=== PATIENT | female | born 1935 | race Caucasian/White ===

== ENCOUNTER → 2018-01-17 13:33 | Outpatient (CLI) | payer MEDICARE, SELFPAY ==
--- NOTE | 2018-01-17 | DI.NM.S_ITS ---
PROCEDURE: NM MANNY PERF SPECT R&S PHARM Rest and pharmacological stress myocardial perfusion SPECT with gated imaging and ejection fraction RADIOPHARMACEUTICAL: 24.9 mCi Tc-99m tetrafosmin IV at rest and 24.8 mCi Tc-99m tetrafosmin IV at peak effect of pharmacological stress. Ljv-gcr-lolyaopu was performed. INDICATIONS: AFIB TECHNIQUE: Radiopharmaceutical was injected at peak stress test, and also at rest. SPECT images were obtained. SPECT myocardial perfusion images were displayed in short axis, horizontal long axis, and vertical long axis views. Gated images were reviewed using Flurry software. COMPARISON: None. CARDIAC STRESS: A pharmacologic stress test was performed under the supervision of an attending staff, using an infusion of lexiscan 0.4mg IV X1. Hemodynamic data: There is normal blood pressure and heart rate response to pharmacologic stress. Symptoms: The patient denied anginal chest pain. Dyspnea occurred with lexiscan injection. Aminophylline: none EKG: Atrial fibrillation with RBBB present throughout the study. No diagnostic changes of ischemia; no ectopy. FINDINGS: Raw data: There is good myocardial uptake of radiotracer. No significant motion artifacts. Ewrf-nj-vifje ratio is 0.29 (normal is less than 0.38 for tetrafosmin tracer). Left ventricle function: Gated images demonstrate normal left ventricular wall thickening. No segmental wall motion abnormalities. No transient ischemic dilation; TID is 0.93 (normal less than 1.3). Left ventricle resting end diastolic volume is 132 mL. Left ventricle stress ejection fraction is 78%; normal range is above 45%. Myocardial perfusion: There is a mildly intense small fixed defect at the apex that appears to be attenuation artifact but small non-transmural apical infarction can not be excluded. Prone images not obtained due to the patient's physical disability. IMPRESSION: Probably normal pharmaceutical nuclear stress test 1) Probably normal perfusion images. There is a mildly intense small fixed defect at the apex that appears to be attenuation artifact but small non-transmural apical infarction can not be excluded. Prone images not obtained due to the patient's physical disability. 2) Normal left ventricular size, wall motion, and systolic function (post stress EF 78%). 3) No ECG evidence of ischemia. 4) Atrial fibrillation with RBBB present throughout the study. 5) No chest pain during the study. Patient had dyspnea due to the lexiscan injection. 6) No prior nuclear stress test available for comparison. Dictated by: Mehrdad Li MD on 01/18/2018 at 13:22 Approved by: Mehrdad Li MD on 01/18/2018 at 13:29
--- NOTE | 2018-01-17 14:59 | PM.TREADMILL ---
Cardiac Stress Test Report Referral & Results Date Patient Seen: 01/17/18 Requesting provider: Kristian Dai Rest ECG: Atrial fibrillation Procedure Note: After both written and verbal informed consent the patient had an IV started by the diagnostic imaging RN and then was hooked up to the treadmill monitoring system. The patient was then injected with the Al[place]a scan material. The Cardiolite was then immediately administered. The patient became severely dyspneic with the administration of the Lexiscan. Her oxygen saturation dropped into the low 80s. However within 3-5 minutes she began to feel much improved and her oxygen saturation returned to normal. Patient does have known chronic lung disease. The patient otherwise had a normal response to all infused materials. Impression: Severe dyspnea and hypoxia produced by Lexiscan material although resolved prior to imaging Perfusion imaging to be reported separately Please note: Actual ECG tracings can be found in the PACS system.
== END ==
PROVIDERS: Family Provider Family Medicine; PCP Family Medicine; Visit Provider Internal Medicine
DX: I48.91 Unspecified atrial fibrillation (principal); I45.10 Unspecified right bundle-branch block
CPT/HCPCS: 78452; 93016; 93017; 93018; A9502; J2785

== ENCOUNTER 2018-02-06 15:00 | Oncology outpatient (ONC) | payer MEDICARE, SELFPAY ==
[2018-01-26] MEDS: IRON SUCROSE 100 MG in SODIUM CHLORIDE 0.9% 100 ML 420 ML IV (15:46)
[2018-01-26 16:36] VITALS: BP 164/65; PULSE 65; RESP 18; TEMP 36.8; O2SAT 98
[2018-01-30] MEDS: IRON SUCROSE 100 MG in SODIUM CHLORIDE 0.9% 100 ML 420 ML IV (15:31)
[2018-01-30 15:58] VITALS: BP 138/50; PULSE 60; RESP 20; TEMP 36.4; O2SAT 94
[2018-02-02] MEDS: IRON SUCROSE 100 MG in SODIUM CHLORIDE 0.9% 100 ML 420 ML IV (15:12)
[2018-02-06] MEDS: IRON SUCROSE 100 MG in SODIUM CHLORIDE 0.9% 100 ML 420 ML IV (15:39)
[2018-02-06 15:53] VITALS: BP 153/86; PULSE 60; RESP 14; TEMP 36.7
--- NOTE | 2018-02-06 16:15 | PC.NURSE ---
Ana comes shane w/c with son for Iron. She is on O2 @ 1L and has a fistula i her left arm in anticipation of future dialysis. she has 1-2 + edema in ankles. Tolerated infusion well. D/C with son.
== END 2018-02-23 13:35 ==
PROVIDERS: Family Provider Family Medicine; PCP Family Medicine; Visit Provider Internal Medicine Nephrology
DX: E11.22 Type 2 diabetes mellitus with diabetic chronic kidney disease (principal); I12.0 Hypertensive chronic kidney disease with stage 5 chronic kidney disease or end stage renal disease; N18.5 Chronic kidney disease, stage 5; D63.1 Anemia in chronic kidney disease
CPT/HCPCS: 96365; 96374; J1756

== ENCOUNTER 2018-02-09 11:37 | Emergency (ER) | payer MEDICARE, SELFPAY ==
[2018-02-09 11:45] VITALS: BP 118/67; PULSE 50; RESP 16; TEMP 36.6; O2SAT 96; BMI 26.9
--- NOTE | 2018-02-09 12:26 | ED.FALL ---
HPI - Fall <Vanesa Herndon [facility] JUSTICE-BC - Last Filed: 02/09/18 15:40> General Chief Complaint: Fall Stated Complaint: FELL AND HIT HEAD Time Seen by Provider: 02/09/18 12:03 Source: patient and family Mode of arrival: ambulatory Limitations: no limitations History of Present Illness HPI Narrative: Patient is an 82-year-old female with history of cardiac stents and renal disease who presents after a ground level fall approximately 10:00 a.m. this morning. She had a mechanical fall when trying to wear self and landed on the back of her head. She denies any loss of consciousness, but she is concerned she takes Plavix. She presents think she needs a head CT. She denies any dizziness, lightheadedness, nausea vomiting. She did complains of a headache and complains of a knot on her head. She denies any neck pain or back pain. She denies any other pain other than her headache. She has not taken anything for pain. She is adamant that she had a mechanical fall, no syncope. She presents with her grandson, who states she has ?acting completely normal? and that he thinks she is ?fine.? Related Data Home Medications Medication Instructions Recorded Confirmed clopidogrel [Plavix] 75 mg PO QDAY #0 08/29/11 02/09/18 CHOLECALCIFEROL (VITAMIN D3) 1,000 units PO QDAY #0 04/15/12 (VITAMIN D3) Vitamin B-12 100 mcg PO QDAY #0 04/15/12 [CENTRUM SILVER] 1 tab PO QAM #0 04/15/12 insulin glargine [Lantus U-100 10 unit SQ HS #10 ml 04/15/12 Insulin] atorvastatin 1 tab PO DAILY 02/09/18 02/09/18 carvedilol 02/09/18 02/09/18 citalopram 1 tab PO DAILY 02/09/18 02/09/18 fenofibrate 1 tab PO DAILY 02/09/18 02/09/18 hydralazine 1 tab PO TID 02/09/18 02/09/18 isosorbide mononitrate 90 mg PO DAILY 02/09/18 02/09/18 potassium chloride 02/09/18 02/09/18 ropinirole 02/09/18 02/09/18 spironolactone 12.5 mg PO DAILY 02/09/18 02/09/18 torsemide 02/09/18 02/09/18 tramadol 1 tab PO DAILY 02/09/18 02/09/18 trazodone 1 tab PO DAILY 02/09/18 02/09/18 umeclidinium-vilanterol [Anoro 02/09/18 02/09/18 Ellipta] Allergies Allergy/AdvReac Type Severity Reaction Status Date / Time No Known Drug Allergies Allergy Verified 02/09/18 11:45 Review of Systems <[facility] Last Filed: 02/09/18 15:40> Review of Systems GENERAL: Denies chills, fatigue, malaise, fever, sweats. HEENT: Denies sinus pain, ear pain, sore throat, difficulty swallowing, dizziness. RESPIRATORY: Denies dyspnea, cough, wheezing, hemoptysis, sputum. CARDIOVASCULAR: Denies chest pain, palpitations, orthopnea, edema, GASTROINTESTINAL: Denies nausea, vomiting, abdominal pain, diarrhea, constipation, melena. : Denies dysuria, frequency, incontinence, hematuria, urinary retention. MUSCULOSKELETAL: denies weakness, joint pain, or bony pain SKIN: See HPI NEUROLOGIC: See HPI PSYCHIATRIC: No concerning psychosocial issues. 12 point review of systems is negative except for those stated above Exam [facility] - Last Filed: 02/09/18 15:40> Narrative Exam Narrative: GENERAL: This is a well-nourished, well-developed patient, in no acute distress HEAD: Atraumatic. Normocephalic. No temporal or scalp tenderness. EYES: Pupils equal round and reactive. Extraocular motions intact. No scleral icterus. No injection or drainage. ENT: Nose without bleeding, purulent drainage or septal hematoma. Throat without erythema, tonsillar hypertrophy or exudate. Uvula midline. Airway patent. NECK: Trachea midline. No JVD or lymphadenopathy. Supple, nontender, no meningeal signs. CARDIOVASCULAR: Regular rate and rhythm without murmurs, gallops, or rubs. RESPIRATORY: Clear to auscultation. Breath sounds equal bilaterally. No wheezes, rales, or rhonchi. GASTROINTESTINAL: Abdomen soft, non-tender, nondistended. No hepato-splenomegaly, or palpable masses. No guarding. EXTREMITIES: No clubbing, cyanosis, or edema. No joint tenderness, effusion, or edema noted. BACK: Nontender without deformity or crepitance. No flank tenderness. No pain to C-spine and spinal palpation. NEURO: AOx3. Strength is equal upper and lower extremities bilaterally. No slurred speech. Cranial nerves grossly intact. SKIN: Palpable hematoma also put of the back of her head. No obvious bleeding. No laceration, no abrasion. Initial Vital Signs Initial Vital Signs: Vital Signs Temperature 97.8 F 02/09/18 11:45 Pulse Rate 50 L 02/09/18 11:45 Respiratory Rate 16 02/09/18 11:45 Blood Pressure 118/67 02/09/18 11:45 Pulse Oximetry 96 02/09/18 11:45 <Russel Colunga DO - Last Filed: 02/09/18 17:38> Initial Vital Signs Initial Vital Signs: Vital Signs Temperature 97.8 F 02/09/18 11:45 Pulse Rate 50 L 02/09/18 11:45 Respiratory Rate 16 02/09/18 11:45 Blood Pressure 118/67 02/09/18 11:45 Pulse Oximetry 96 02/09/18 11:45 Course <DOMENIC Wright-BC - Last Filed: 02/09/18 15:40> Decision to Admit Date: 02/09/18 Decision to Admit time: 12:52 Orders Ordered: ED Orders 02/09/18 12:30 CT head/brain wo con Stat 02/09/18 13:05 Complete Blood Count AUTO DIFF Stat Comprehensive Metabolic Panel Stat Prothrombin Time INR Stat Reevaluation(s) Reevaluation #1: Checked on the patient multiple times throughout her stay in the emergency department. She remained alert and oriented. She did complain of some nausea. Consultations Consultation #1: Spoke with radiologist regarding head CT results. Time: 12:51 Consultation #2: Initiated contact with [facility] regarding transfer given intracranial hemorrhage. Spoke with Dr. Villegas, who kindly agreed to accept the patient. Time: 13:00 Vital Signs - 8 hr 02/09/18 11:45 02/09/18 13:31 02/09/18 13:53 Temperature 97.8 F Pulse Rate 50 L 78 73 Respiratory Rate 16 Blood Pressure 118/67 Blood Pressure [Right Arm] 156/47 H 156/47 H Pulse Oximetry 96 95 <Russel DO Keanu - Last Filed: 02/09/18 17:38> Orders Ordered: ED Orders 02/09/18 12:30 CT head/brain wo con Stat 02/09/18 13:05 Complete Blood Count AUTO DIFF Stat Comprehensive Metabolic Panel Stat Prothrombin Time INR Stat Vital Signs - 8 hr 02/09/18 11:45 02/09/18 13:31 02/09/18 13:53 Temperature 97.8 F Pulse Rate 50 L 78 73 Respiratory Rate 16 Blood Pressure 118/67 Blood Pressure [Right Arm] 156/47 H 156/47 H Pulse Oximetry 96 95 MDM - Fall <Vanesa HerreraDOMENIC cifuentes-BC - Last Filed: 02/09/18 15:40> Lab Data Result diagrams: 02/09/18 13:05 02/09/18 13:05 Lab Results 02/09/18 02/09/18 02/09/18 Range/Units 13:05 13:05 13:05 WBC 8.2 (4.5-11.0) X10^3/uL RBC 3.53 L (4.0-5.2) X10^6/uL Hgb 9.8 L (12.0-16.0) g/dL Hct 30.5 L (36-46) % MCV 86.3 (80-100) fL MCH 27.8 (26-34) PG MCHC 32.2 (30-36) % RDW 16.4 H (11.6-14.8) % Plt Count 280 (150-400) X10^3/uL Neut % (Auto) 68.4 (50-75) % Lymph % (Auto) 22.7 L (25-40) % [place] % (Auto) 6.9 (3-14) % Eos % (Auto) 0.9 L (2-4) % Baso % (Auto) 1.1 (0-2) % Neut # (Auto) 5600 (9619-4168) /uL PT 12.3 (10.1-12.7) SECONDS INR 1.1 (0.9-1.3) Sodium 140 (137-145) mmol/L Potassium 4.3 (3.4-5.1) mmol/L Chloride 97 L (98-107) mmol/L Carbon Dioxide 31 (22-32) mmol/L BUN 112 H* (7-17) mg/dL Creatinine 2.70 H (0.52-1.04) mg/dL Estimated GFR 16.9 L (>60) mL/min BUN/Creatinine Ratio 41.5 H (6-22) Glucose 99 (80-110) mg/dL Calcium 10.4 H (8.4-10.2) mg/dL Total Bilirubin 0.7 (0.2-1.3) mg/dL AST 48 H (14-36) IU/L ALT 30 (9-52) IU/L Alkaline Phosphatase 43 (38-126) U/L Total Protein 7.1 (6.3-8.2) g/dL Albumin 4.0 (3.5-5.0) g/dL Globulin 3.1 (1.7-4.1) g/dL Albumin/Globulin Ratio 1.3 (1.0-2.8) Imaging Data CT scan - head: Radiologist's impression: [address] [address] [address] Scan Report Signed Patient: Ana Burgess LMR#: [id number] : 6Acct:[id number] Age/Sex: 82 / FDate of Service: 02/09/18 Loc: ED Accession Number: [id number] Procedure: CT head/brain wo con [facility] CT HEAD/BRAIN WO CON INDICATIONS: Ground level fall. On blood thinners. Right posterior hematoma TECHNIQUE: Noncontrast 4.5 mm thick angled axial sections acquired from the foramen magnum to the vertex, with coronal and sagittal reformats. For radiation dose reduction, the following was used: automated exposure control, adjustment of mA and/or kV according to patient size. COMPARISON: [facility], CT, HEAD WITHOUT CONTRAST, 03/04/2014, 7:57. FINDINGS: Image quality: Excellent. CSF spaces: Basal cisterns are patent. No extra-axial fluid collections. The ventricles are symmetric in size and shape. Brain: No masses. Trace posttraumatic subarachnoid hemorrhage noted in the posterior-superior right temporal sulcus. There is moderate cerebral volume loss for age, with resultant ventricular and sulcal prominence. There are severe periventricular and deep white matter chronic small vessel ischemic changes. Chronic, small, lacunar infarcts involving the left dickerson radiata, left caudate head, right thalamus, right dickerson radiata and in the cerebellar hemispheres.. There is intracranial internal carotid artery atherosclerosis. Skull and face: Calvarium and visualized facial bones appear intact, without suspicious lesions. Large right parietal scalp hematoma is noted. 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 Sinuses: Visualized sinuses and mastoids are clear. IMPRESSION: 1. Trace posttraumatic subarachnoid hemorrhage involving the posterior right temporal lobe. 2. Large right parietal scalp hematoma. 3. No fracture. 4. Findings discussed with Vanesa Herndon on 02/09/18 at 1251 hrs. Dictated by: Caren Stringer MD, PhD on 02/09/2018 at 12:42 MDM Narrative Medical decision making narrative: Patient presents with chief complaint of ground level fall on Plavix. She was found to have a subarachnoid hemorrhage. Given her traumatic intracranial hemorrhage, Dr. Villegas at [facility] kindly agreed to accept the patient for transfer. Given the distance patient was transferred by air. She remained alert and oriented with stable vital signs in the Emergency Department. Her C-spine was cleared by nexus criteria. Patient was transferred to [facility] at 14:00 <Russel Colunga, DO - Last Filed: 02/09/18 17:38> Lab Data Lab Results 02/09/18 02/09/18 02/09/18 Range/Units 13:05 13:05 13:05 WBC 8.2 (4.5-11.0) X10^3/uL RBC 3.53 L (4.0-5.2) X10^6/uL Hgb 9.8 L (12.0-16.0) g/dL Hct 30.5 L (36-46) % MCV 86.3 (80-100) fL MCH 27.8 (26-34) PG MCHC 32.2 (30-36) % RDW 16.4 H (11.6-14.8) % Plt Count 280 (150-400) X10^3/uL Neut % (Auto) 68.4 (50-75) % Lymph % (Auto) 22.7 L (25-40) % [place] % (Auto) 6.9 (3-14) % Eos % (Auto) 0.9 L (2-4) % Baso % (Auto) 1.1 (0-2) % Neut # (Auto) 5600 (3961-2819) /uL PT 12.3 (10.1-12.7) SECONDS INR 1.1 (0.9-1.3) Sodium 140 (137-145) mmol/L Potassium 4.3 (3.4-5.1) mmol/L Chloride 97 L (98-107) mmol/L Carbon Dioxide 31 (22-32) mmol/L BUN 112 H* (7-17) mg/dL Creatinine 2.70 H (0.52-1.04) mg/dL Estimated GFR 16.9 L (>60) mL/min BUN/Creatinine Ratio 41.5 H (6-22) Glucose 99 (80-110) mg/dL Calcium 10.4 H (8.4-10.2) mg/dL Total Bilirubin 0.7 (0.2-1.3) mg/dL AST 48 H (14-36) IU/L ALT 30 (9-52) IU/L Alkaline Phosphatase 43 (38-126) U/L Total Protein 7.1 (6.3-8.2) g/dL Albumin 4.0 (3.5-5.0) g/dL Globulin 3.1 (1.7-4.1) g/dL Albumin/Globulin Ratio 1.3 (1.0-2.8) Discharge Plan Departure Patient Disposition: [facility] Clinical Impression: Subarachnoid bleed, Hematoma, Fall from ground level Discharge Date/Time: 02/09/18 14:09 Interventions: ED Discharge Assessment Last Done: 02/09/18 14:09 Prescriptions: No Action clopidogrel [Plavix] 75 MG tablet 75 mg PO QDAY Qty: 0 RF: 0 insulin glargine [Lantus U-100 Insulin] 100 UNIT/1 ML solution 10 unit SQ HS Qty: 10 RF: 0 CHOLECALCIFEROL (VITAMIN D3) (VITAMIN D3) 1,000 units PO QDAY Qty: 0 RF: 0 Vitamin B-12 100 mcg PO QDAY Qty: 0 RF: 0 [CENTRUM SILVER] 1 tab PO QAM Qty: 0 RF: 0 atorvastatin 40 mg tablet 1 tab PO DAILY RF: 0 carvedilol 25 mg tablet RF: 0 torsemide 20 mg tablet RF: 0 trazodone 50 mg tablet 1 tab PO DAILY RF: 0 hydralazine 25 mg tablet 1 tab PO TID RF: 0 potassium chloride 10 mEq tablet extended release RF: 0 tramadol 50 mg tablet 1 tab PO DAILY RF: 0 spironolactone 25 mg tablet 12.5 mg PO DAILY RF: 0 isosorbide mononitrate 60 mg tablet extended release 24 hr 90 mg PO DAILY RF: 0 citalopram 20 mg tablet 1 tab PO DAILY RF: 0 ropinirole 2 mg tablet RF: 0 fenofibrate 160 mg tablet 1 tab PO DAILY RF: 0 umeclidinium-vilanterol [Anoro Ellipta] 62.5-25 mcg/actuation blister with device RF: 0 Referrals: Raquel Marsh MD [Primary Care Provider] - <Russel Colunga DO - Last Filed: 02/09/18 17:38> Cosign ED Attending Polly Attestation: I was available for consultation during this patient's emergency department encounter
--- NOTE | 2018-02-09 12:30 | DI.CT.S_ITS ---
PROCEDURE: CT HEAD/BRAIN WO CON INDICATIONS: Ground level fall. On blood thinners. Right posterior hematoma TECHNIQUE: Noncontrast 4.5 mm thick angled axial sections acquired from the foramen magnum to the vertex, with coronal and sagittal reformats. For radiation dose reduction, the following was used: automated exposure control, adjustment of mA and/or kV according to patient size. COMPARISON: [facility], CT, HEAD WITHOUT CONTRAST, 03/04/2014, 7:57. FINDINGS: Image quality: Excellent. CSF spaces: Basal cisterns are patent. No extra-axial fluid collections. The ventricles are symmetric in size and shape. Brain: No masses. Trace posttraumatic subarachnoid hemorrhage noted in the posterior-superior right temporal sulcus. There is moderate cerebral volume loss for age, with resultant ventricular and sulcal prominence. There are severe periventricular and deep white matter chronic small vessel ischemic changes. Chronic, small, lacunar infarcts involving the left dickerson radiata, left caudate head, right thalamus, right dickerson radiata and in the cerebellar hemispheres.. There is intracranial internal carotid artery atherosclerosis. Skull and face: Calvarium and visualized facial bones appear intact, without suspicious lesions. Large right parietal scalp hematoma is noted. 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 Sinuses: Visualized sinuses and mastoids are clear. IMPRESSION: 1. Trace posttraumatic subarachnoid hemorrhage involving the posterior right temporal lobe. 2. Large right parietal scalp hematoma. 3. No fracture. 4. Findings discussed with Vanesa Herndon on 02/09/18 at 1251 hrs. Dictated by: Caren Stringer MD, PhD on 02/09/2018 at 12:42 Approved by: Caren Stringer MD, PhD on 02/09/2018 at 12:54
[2018-02-09 13:15] LABS: Add Manual Diff / Slide Review NO; Basophils Percent Auto 1.1 % (0-2); Eosinophils Percent Auto 0.9 % (2-4); Hematocrit 30.5 % (36-46); Hemoglobin 9.8 g/dL (12.0-16.0); Lymphocytes Percent Auto 22.7 % (25-40); Mean Corpuscular HGB Conc 32.2 % (30-36); Mean Corpuscular Hemoglobin 27.8 PG (26-34); Mean Corpuscular Volume 86.3 fL (80-100); Monocytes Percent Auto 6.9 % (3-14); Neutrophils Absolute Auto 5600 /uL (3000-5900); Neutrophils Percent Auto 68.4 % (50-75); Platelet Count 280 X10^3/uL (150-400); Red Blood Cell Count 3.53 X10^6/uL (4.0-5.2); Red Cell Distribution Width 16.4 % (11.6-14.8); White Blood Cell Count 8.2 X10^3/uL (4.5-11.0)
[2018-02-09 13:20] LABS: INR 1.1 (0.9-1.3); Prothrombin Time 12.3 SECONDS (10.1-12.7)
[2018-02-09 13:27] LABS: Alanine Aminotransferase 30 IU/L (9-52); Albumin Globulin Ratio 1.3 (1.0-2.8); Alkaline Phosphatase 43 U/L (38-126); Aspartate Aminotransferase 48 IU/L (14-36); BUN Creatinine Ratio 41.5 (6-22); Bilirubin Total 0.7 mg/dL (0.2-1.3); Calcium 10.4 mg/dL (8.4-10.2); Carbon Dioxide 31 mmol/L (22-32); Chloride 97 mmol/L (98-107); Estimated Glomerular Filt Rate 16.9 mL/min (>60); Globulin 3.1 g/dL (1.7-4.1); Glucose 99 mg/dL (80-110); HEMOLYSIS 26 (0-50); Potassium 4.3 mmol/L (3.4-5.1); Sodium 140 mmol/L (137-145); Total Protein 7.1 g/dL (6.3-8.2)
[2018-02-09 13:31] VITALS: BP 156/47; PULSE 78
--- NOTE | 2018-02-09 13:33 | ED_ITS ---
HPI - Fall <Vanesa Herndon [employer] - Last Filed: 02/09/18 15:40> General Chief Complaint: Fall Stated Complaint: FELL AND HIT HEAD Time Seen by Provider: 02/09/18 12:03 Source: patient and family Mode of arrival: ambulatory Limitations: no limitations History of Present Illness HPI Narrative: Patient is an 82-year-old female with history of cardiac stents and renal disease who presents after a ground level fall approximately 10:00 a.m. this morning. She had a mechanical fall when trying to wear self and landed on the back of her head. She denies any loss of consciousness, but she is concerned she takes Plavix. She presents think she needs a head CT. She denies any dizziness, lightheadedness, nausea vomiting. She did complains of a headache and complains of a knot on her head. She denies any neck pain or back pain. She denies any other pain other than her headache. She has not taken anything for pain. She is adamant that she had a mechanical fall, no syncope. She presents with her grandson, who states she has ?acting completely normal? and that he thinks she is ?fine.? Related Data Home Medications Medication Instructions Recorded Confirmed clopidogrel [Plavix] 75 mg PO QDAY #0 08/29/11 02/09/18 CHOLECALCIFEROL (VITAMIN D3) 1,000 units PO QDAY #0 04/15/12 (VITAMIN D3) Vitamin B-12 100 mcg PO QDAY #0 04/15/12 [CENTRUM SILVER] 1 tab PO QAM #0 04/15/12 insulin glargine [Lantus U-100 10 unit SQ HS #10 ml 04/15/12 Insulin] atorvastatin 1 tab PO DAILY 02/09/18 02/09/18 carvedilol 02/09/18 02/09/18 citalopram 1 tab PO DAILY 02/09/18 02/09/18 fenofibrate 1 tab PO DAILY 02/09/18 02/09/18 hydralazine 1 tab PO TID 02/09/18 02/09/18 isosorbide mononitrate 90 mg PO DAILY 02/09/18 02/09/18 potassium chloride 02/09/18 02/09/18 ropinirole 02/09/18 02/09/18 spironolactone 12.5 mg PO DAILY 02/09/18 02/09/18 torsemide 02/09/18 02/09/18 tramadol 1 tab PO DAILY 02/09/18 02/09/18 trazodone 1 tab PO DAILY 02/09/18 02/09/18 umeclidinium-vilanterol [Anoro 02/09/18 02/09/18 Ellipta] Allergies Allergy/AdvReac Type Severity Reaction Status Date / Time No Known Drug Allergies Allergy Verified 02/09/18 11:45 Review of Systems <[facility] - Last Filed: 02/09/18 15:40> Review of Systems GENERAL: Denies chills, fatigue, malaise, fever, sweats. HEENT: Denies sinus pain, ear pain, sore throat, difficulty swallowing, dizziness. RESPIRATORY: Denies dyspnea, cough, wheezing, hemoptysis, sputum. CARDIOVASCULAR: Denies chest pain, palpitations, orthopnea, edema, GASTROINTESTINAL: Denies nausea, vomiting, abdominal pain, diarrhea, constipation, melena. : Denies dysuria, frequency, incontinence, hematuria, urinary retention. MUSCULOSKELETAL: denies weakness, joint pain, or bony pain SKIN: See HPI NEUROLOGIC: See HPI PSYCHIATRIC: No concerning psychosocial issues. 12 point review of systems is negative except for those stated above Exam <[facility] - Last Filed: 02/09/18 15:40> Narrative Exam Narrative: GENERAL: This is a well-nourished, well-developed patient, in no acute distress HEAD: Atraumatic. Normocephalic. No temporal or scalp tenderness. EYES: Pupils equal round and reactive. Extraocular motions intact. No scleral icterus. No injection or drainage. ENT: Nose without bleeding, purulent drainage or septal hematoma. Throat without erythema, tonsillar hypertrophy or exudate. Uvula midline. Airway patent. NECK: Trachea midline. No JVD or lymphadenopathy. Supple, nontender, no meningeal signs. CARDIOVASCULAR: Regular rate and rhythm without murmurs, gallops, or rubs. RESPIRATORY: Clear to auscultation. Breath sounds equal bilaterally. No wheezes , rales, or rhonchi. GASTROINTESTINAL: Abdomen soft, non-tender, nondistended. No hepato-splenomegaly , or palpable masses. No guarding. EXTREMITIES: No clubbing, cyanosis, or edema. No joint tenderness, effusion, or edema noted. BACK: Nontender without deformity or crepitance. No flank tenderness. No pain to C-spine and spinal palpation. NEURO: AOx3. Strength is equal upper and lower extremities bilaterally. No slurred speech. Cranial nerves grossly intact. SKIN: Palpable hematoma also put of the back of her head. No obvious bleeding. No laceration, no abrasion. Initial Vital Signs Initial Vital Signs: Vital Signs Temperature 97.8 F 02/09/18 11:45 Pulse Rate 50 L 02/09/18 11:45 Respiratory Rate 16 02/09/18 11:45 Blood Pressure 118/67 02/09/18 11:45 Pulse Oximetry 96 02/09/18 11:45 <Russel Colunga DO - Last Filed: 02/09/18 17:38> Initial Vital Signs Initial Vital Signs: Vital Signs Temperature 97.8 F 02/09/18 11:45 Pulse Rate 50 L 02/09/18 11:45 Respiratory Rate 16 02/09/18 11:45 Blood Pressure 118/67 02/09/18 11:45 Pulse Oximetry 96 02/09/18 11:45 Course <DOMENIC Wright-BC - Last Filed: 02/09/18 15:40> Decision to Admit Date: 02/09/18 Decision to Admit time: 12:52 Orders Ordered: ED Orders 02/09/18 12:30 CT head/brain wo con Stat 02/09/18 13:05 Complete Blood Count AUTO DIFF Stat Comprehensive Metabolic Panel Stat Prothrombin Time INR Stat Reevaluation(s) Reevaluation #1: Checked on the patient multiple times throughout her stay in the emergency department. She remained alert and oriented. She did complain of some nausea. Consultations Consultation #1: Spoke with radiologist regarding head CT results. Time: 12:51 Consultation #2: Initiated contact with [facility] regarding transfer given intracranial hemorrhage. Spoke with Dr. Villegas, who kindly agreed to accept the patient. Time: 13:00 Vital Signs - 8 hr 02/09/18 11:45 02/09/18 13:31 02/09/18 13:53 Temperature 97.8 F Pulse Rate 50 L 78 73 Respiratory Rate 16 Blood Pressure 118/67 Blood Pressure [Right Arm] 156/47 H 156/47 H Pulse Oximetry 96 95 <Russle DO Keanu - Last Filed: 02/09/18 17:38> Orders Ordered: ED Orders 02/09/18 12:30 CT head/brain wo con Stat 02/09/18 13:05 Complete Blood Count AUTO DIFF Stat Comprehensive Metabolic Panel Stat Prothrombin Time INR Stat Vital Signs - 8 hr 02/09/18 11:45 02/09/18 13:31 02/09/18 13:53 Temperature 97.8 F Pulse Rate 50 L 78 73 Respiratory Rate 16 Blood Pressure 118/67 Blood Pressure [Right Arm] 156/47 H 156/47 H Pulse Oximetry 96 95 MDM - Fall <Vanesa HerreraDOMENIC cifuentes-BC - Last Filed: 02/09/18 15:40> Lab Data Result diagrams: 02/09/18 13:05 02/09/18 13:05 Lab Results 02/09/18 02/09/18 02/09/18 Range/Units 13:05 13:05 13:05 WBC 8.2 (4.5-11.0) X10^3/uL RBC 3.53 L (4.0-5.2) X10^6/uL Hgb 9.8 L (12.0-16.0) g/dL Hct 30.5 L (36-46) % MCV 86.3 (80-100) fL MCH 27.8 (26-34) PG MCHC 32.2 (30-36) % RDW 16.4 H (11.6-14.8) % Plt Count 280 (150-400) X10^3/uL Neut % (Auto) 68.4 (50-75) % Lymph % (Auto) 22.7 L (25-40) % [place] % (Auto) 6.9 (3-14) % Eos % (Auto) 0.9 L (2-4) % Baso % (Auto) 1.1 (0-2) % Neut # (Auto) 5600 (3305-9409) /uL PT 12.3 (10.1-12.7) SECONDS INR 1.1 (0.9-1.3) Sodium 140 (137-145) mmol/L Potassium 4.3 (3.4-5.1) mmol/L Chloride 97 L (98-107) mmol/L Carbon Dioxide 31 (22-32) mmol/L BUN 112 H* (7-17) mg/dL Creatinine 2.70 H (0.52-1.04) mg/dL Estimated GFR 16.9 L (>60) mL/min BUN/Creatinine Ratio 41.5 H (6-22) Glucose 99 (80-110) mg/dL Calcium 10.4 H (8.4-10.2) mg/dL Total Bilirubin 0.7 (0.2-1.3) mg/dL AST 48 H (14-36) IU/L ALT 30 (9-52) IU/L Alkaline Phosphatase 43 (38-126) U/L Total Protein 7.1 (6.3-8.2) g/dL Albumin 4.0 (3.5-5.0) g/dL Globulin 3.1 (1.7-4.1) g/dL Albumin/Globulin Ratio 1.3 (1.0-2.8) Imaging Data CT scan - head: Radiologist's impression: [address] [address] [address] Scan Report Signed Patient: Ana Burgess LMR#: [id number] : 6Acct:[id number] Age/Sex: 82 / FDate of Service: 02/09/18 Loc: ED Accession Number: [id number] Procedure: CT head/brain wo con Ordering [facility] PROCEDURE: CT HEAD/BRAIN WO CON INDICATIONS: Ground level fall. On blood thinners. Right posterior hematoma TECHNIQUE: Noncontrast 4.5 mm thick angled axial sections acquired from the foramen magnum to the vertex, with coronal and sagittal reformats. For radiation dose reduction, the following was used: automated exposure control, adjustment of mA and/or kV according to patient size. COMPARISON: [facility], CT, HEAD WITHOUT CONTRAST, 03/04/2014, 7:57. FINDINGS: Image quality: Excellent. CSF spaces: Basal cisterns are patent. No extra-axial fluid collections. The ventricles are symmetric in size and shape. Brain: No masses. Trace posttraumatic subarachnoid hemorrhage noted in the posterior-superior right temporal sulcus. There is moderate cerebral volume loss for age, with resultant ventricular and sulcal prominence. There are severe periventricular and deep white matter chronic small vessel ischemic changes. Chronic, small, lacunar infarcts involving the left dickerson radiata, left caudate head, right thalamus, right dickerson radiata and in the cerebellar hemispheres.. There is intracranial internal carotid artery atherosclerosis. Skull and face: Calvarium and visualized facial bones appear intact, without suspicious lesions. Large right parietal scalp hematoma is noted. 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 Sinuses: Visualized sinuses and mastoids are clear. IMPRESSION: 1. Trace posttraumatic subarachnoid hemorrhage involving the posterior right temporal lobe. 2. Large right parietal scalp hematoma. 3. No fracture. 4. Findings discussed with Vanesa Herndon on 02/09/18 at 1251 hrs. Dictated by: Caren Stringer MD, PhD on 02/09/2018 at 12:42 MDM Narrative Medical decision making narrative: Patient presents with chief complaint of ground level fall on Plavix. She was found to have a subarachnoid hemorrhage. Given her traumatic intracranial hemorrhage, Dr. Villegas at [facility] kindly agreed to accept the patient for transfer. Given the distance patient was transferred by air. She remained alert and oriented with stable vital signs in the Emergency Department. Her C-spine was cleared by nexus criteria. Patient was transferred to [facility] at 14:00 <Russel Colunga, DO - Last Filed: 02/09/18 17:38> Lab Data Lab Results 02/09/18 02/09/18 02/09/18 Range/Units 13:05 13:05 13:05 WBC 8.2 (4.5-11.0) X10^3/uL RBC 3.53 L (4.0-5.2) X10^6/uL Hgb 9.8 L (12.0-16.0) g/dL Hct 30.5 L (36-46) % MCV 86.3 (80-100) fL MCH 27.8 (26-34) PG MCHC 32.2 (30-36) % RDW 16.4 H (11.6-14.8) % Plt Count 280 (150-400) X10^3/uL Neut % (Auto) 68.4 (50-75) % Lymph % (Auto) 22.7 L (25-40) % [place] % (Auto) 6.9 (3-14) % Eos % (Auto) 0.9 L (2-4) % Baso % (Auto) 1.1 (0-2) % Neut # (Auto) 5600 (7181-1159) /uL PT 12.3 (10.1-12.7) SECONDS INR 1.1 (0.9-1.3) Sodium 140 (137-145) mmol/L Potassium 4.3 (3.4-5.1) mmol/L Chloride 97 L (98-107) mmol/L Carbon Dioxide 31 (22-32) mmol/L BUN 112 H* (7-17) mg/dL Creatinine 2.70 H (0.52-1.04) mg/dL Estimated GFR 16.9 L (>60) mL/min BUN/Creatinine Ratio 41.5 H (6-22) Glucose 99 (80-110) mg/dL Calcium 10.4 H (8.4-10.2) mg/dL Total Bilirubin 0.7 (0.2-1.3) mg/dL AST 48 H (14-36) IU/L ALT 30 (9-52) IU/L Alkaline Phosphatase 43 (38-126) U/L Total Protein 7.1 (6.3-8.2) g/dL Albumin 4.0 (3.5-5.0) g/dL Globulin 3.1 (1.7-4.1) g/dL Albumin/Globulin Ratio 1.3 (1.0-2.8) Discharge Plan Departure Patient Disposition: [facility] Clinical Impression: Subarachnoid bleed, Hematoma, Fall from ground level Discharge Date/Time: 02/09/18 14:09 Interventions: ED Discharge Assessment Last Done: 02/09/18 14:09 Prescriptions: No Action clopidogrel [Plavix] 75 MG tablet 75 mg PO QDAY Qty: 0 RF: 0 insulin glargine [Lantus U-100 Insulin] 100 UNIT/1 ML solution 10 unit SQ HS Qty: 10 RF: 0 CHOLECALCIFEROL (VITAMIN D3) (VITAMIN D3) 1,000 units PO QDAY Qty: 0 RF: 0 Vitamin B-12 100 mcg PO QDAY Qty: 0 RF: 0 [CENTRUM SILVER] 1 tab PO QAM Qty: 0 RF: 0 atorvastatin 40 mg tablet 1 tab PO DAILY RF: 0 carvedilol 25 mg tablet RF: 0 torsemide 20 mg tablet RF: 0 trazodone 50 mg tablet 1 tab PO DAILY RF: 0 hydralazine 25 mg tablet 1 tab PO TID RF: 0 potassium chloride 10 mEq tablet extended release RF: 0 tramadol 50 mg tablet 1 tab PO DAILY RF: 0 spironolactone 25 mg tablet 12.5 mg PO DAILY RF: 0 isosorbide mononitrate 60 mg tablet extended release 24 hr 90 mg PO DAILY RF: 0 citalopram 20 mg tablet 1 tab PO DAILY RF: 0 ropinirole 2 mg tablet RF: 0 fenofibrate 160 mg tablet 1 tab PO DAILY RF: 0 umeclidinium-vilanterol [Anoro Ellipta] 62.5-25 mcg/actuation blister with device RF: 0 Referrals: Raquel Marsh MD [Primary Care Provider] - <Russel Colunga DO - Last Filed: 02/09/18 17:38> Cosign ED Attending Polly Attestation: I was available for consultation during this patient's emergency department encounter
[2018-02-09 13:45] LABS: Blood Urea Nitrogen 112 mg/dL (7-17)
[2018-02-09 13:53] VITALS: BP 156/47; PULSE 73; O2SAT 95
== END 2018-02-09 14:09 | disposition short-term general hospital (02) ==
PROVIDERS: Emergency Provider Nurse Practitioner Family; PCP Family Medicine
DX: I60.9 Nontraumatic subarachnoid hemorrhage, unspecified (principal); W18.30XA Fall on same level, unspecified, initial encounter
CPT/HCPCS: 36591; 70450; 80053; 85025; 85610; 99283; 99284